=== PATIENT | female | born 1960 | race Caucasian/White ===

== ENCOUNTER → 2018-05-12 | Outpatient (CLI) | payer OTHER | LOC: CAT 14:08 | DX: Z13.6 Encounter for screening for cardiovascular disorders (principal); E78.00 Pure hypercholesterolemia, unspecified; I25.10 Atherosclerotic heart disease of native coronary artery without angina pectoris; Z82.49 Family history of ischemic heart disease and other diseases of the circulatory system ==

== ENCOUNTER → 2020-10-10 | Outpatient (CLI) | payer BC, OTHER | LOC: SJCVCIMAG 10:59 | PROVIDERS: ATTEND Internal Medicine Cardiovascular Disease | DX: I35.0 Nonrheumatic aortic (valve) stenosis (principal); I25.10 Atherosclerotic heart disease of native coronary artery without angina pectoris; E78.5 Hyperlipidemia, unspecified ==

== ENCOUNTER 2020-12-19 14:45 | Emergency (ER) | payer BC, OTHER ==
[~2020-12-19] VITALS: Ht 165.1 cm; Wt 70.3 kg
[2020-12-19 16:24] LABS: ABSOLUTE NEUTROPHILS 4.8 thou/uL (1.4-8.2); BASOPHILS 1.4 % (0.0-2.0); EOSINOPHILS 0.1 % (0.0-3.0); HEMATOCRIT 34.8 % (37.0-47.0); HEMOGLOBIN 12.1 gm/dL (12.0-15.0); LYMPHOCYTES 15.7 % (24.0-44.0); MCH 29.1 pg (26.0-34.0); MCHC 34.8 g/dL (28.0-37.0); MCV 83.5 fL (80.0-100.0); PLATELET COUNT 344 thou/uL (150-400); POLYS 74.8 % (36.0-66.0); RBC 4.17 mil/uL (4.20-5.00); RDW 14.2 % (10.5-14.5); WBC 6.4 thou/uL (4.0-11.0)
[2020-12-19 16:38] LABS: ANION GAP 13 mmol/L (7-16); BUN 14 mg/dL (7-18); CALCIUM 9.1 mg/dL (8.5-10.1); CHLORIDE 102 mmol/L (98-107); CO2 25 mmol/L (21-32); CREATININE 1.1 mg/dL (0.6-1.0); GLUCOSE 94 mg/dL (74-106); POTASSIUM 3.8 mmol/L (3.5-5.1); SODIUM 140 mmol/L (136-145)
[2020-12-19 16:47] LABS: ALBUMIN 3.6 g/dL (3.4-5.0); SGOT 20 U/L (15-37); SGPT 19 U/L (14-59); TOTAL BILIRUBIN 0.4 mg/dL (0.2-1.0); TOTAL PROTEIN 7.6 g/dL (6.4-8.2); TROPONIN-I <0.06 ng/mL (<0.06)
[2020-12-19] MEDS ORDERED: PREDNISONE 20 M20 MG PO (19:07)
[2020-12-19] MEDS ORDERED: ZPAK PO (19:07)
[2020-12-19 19:24] VITALS: BP 103/56
--- NOTE | 2020-12-20 07:35 | EKG ---
[address] [address] ELECTROCARDIOGRAM REPORT Name: CARINA DAILY Room #: [facility]#: [id number] Admission: 12/19/20 Attend Phys: Discharge: 12/19/20 Date of : 56 Report #: [id number] [facility] ED Test Date: 2020-12-19 Test Time: 16:37:25 Pat Name: CARINA DAILY Department: Room: Gender: F Postal Sorting Officer: ALEXIA : 1960 Requested By: Gene Guardado Order Number: [id number] MD: Talat Barrera Measurements Intervals [place] Rate: 77 P: 50 IA: 165 QRS: 40 QRSD: 101 T: 43 QT: 380 QTc: 431 Interpretive Statements Sinus rhythm No previous ECG available for comparison Electronically Signed On 12-20-2020 7:35:39 [employer]IVER GUARD by Talat Barrera [email or web address] <ELECTRONICALLY SIGNED> By: Talat Barrera MD, [facility] 12/20/20 0735 1637 1637 Talat Barrera MD, FACC /EPI
== END 2020-12-19 19:33 | disposition home or self-care (01) ==
LOC: ER 14:45
PROVIDERS: Physician Assistant
DX: U07.1 COVID-19 (principal); J12.82 Pneumonia due to coronavirus disease 2019; Z88.5 Allergy status to narcotic agent